=== PATIENT | female | born 1945 | race Caucasian/White ===

== ENCOUNTER → 2016-08-11 | Outpatient (CLI) | payer MEDICARE, MEDICAID | END | disposition home or self-care (01) | LOC: GMAH 11:23 | PROVIDERS: ATTEND Family Medicine | DX: N18.4 Chronic kidney disease, stage 4 (severe) (principal) ==

== ENCOUNTER → 2016-11-17 | Outpatient (CLI) | payer MEDICARE, MEDICAID | END | disposition home or self-care (01) | LOC: GMAH 11:53 | PROVIDERS: ATTEND Family Medicine | DX: N18.3 Chronic kidney disease, stage 3 (moderate) (principal) ==

== ENCOUNTER → 2017-03-15 | Outpatient (CLI) | payer OTHER | END | disposition home or self-care (01) | LOC: GMAH 10:20 | PROVIDERS: ATTEND Family Medicine | DX: E78.2 Mixed hyperlipidemia (principal); I10 Essential (primary) hypertension ==

== ENCOUNTER → 2017-04-04 | Outpatient (CLI) | payer OTHER | END | disposition home or self-care (01) | LOC: GMAH 10:18 | PROVIDERS: ATTEND Family Medicine | DX: M10.9 Gout, unspecified (principal) ==

== ENCOUNTER → 2017-05-02 | Outpatient (CLI) | payer OTHER | END | disposition home or self-care (01) | LOC: GMAH 11:20 | PROVIDERS: ATTEND Family Medicine | DX: E03.9 Hypothyroidism, unspecified (principal) ==

== ENCOUNTER → 2017-09-15 | Outpatient (CLI) | payer OTHER, MEDICAID | LOC: GMAH 10:09 | PROVIDERS: ATTEND Family Medicine | DX: N18.4 Chronic kidney disease, stage 4 (severe) (principal) ==

== ENCOUNTER → 2018-02-07 | Outpatient (CLI) | payer OTHER, MEDICAID | LOC: GMAH 11:08 | PROVIDERS: ATTEND Family Medicine | DX: E53.8 Deficiency of other specified B group vitamins (principal); R53.83 Other fatigue ==

== ENCOUNTER → 2018-03-22 | Outpatient (CLI) | payer OTHER, MEDICAID | LOC: GMAH 10:48 | PROVIDERS: ATTEND Family Medicine | DX: R30.0 Dysuria (principal) ==

== ENCOUNTER → 2018-04-04 | Outpatient (CLI) | payer OTHER, MEDICAID | LOC: GMAH 11:53 | PROVIDERS: ATTEND Family Medicine | DX: I48.91 Unspecified atrial fibrillation (principal) ==

== ENCOUNTER → 2018-06-26 | Outpatient (CLI) | payer OTHER, MEDICAID | LOC: GMAH 10:47 | PROVIDERS: ATTEND Family Medicine | DX: I10 Essential (primary) hypertension (principal) ==

== ENCOUNTER 2019-04-12 13:06 | Emergency (ER) | payer MEDICARE, MEDICAID ==
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
[2019-04-12] MEDS ORDERED: KETOROLAC TROMETHAMINE INJ 60 MG/2 ML VIAL IM ONE (13:21)
--- NOTE | 2019-04-12 14:15 | RAD ---
EXAM DESCRIPTION: Ribs,Left 3 Views CLINICAL HISTORY: 73 years Female, fall COMPARISON: None. FINDINGS: 4 views of the left ribs shows mildly displaced anterior lateral left fifth and sixth rib fractures. Lungs are mildly hypoaerated. No pneumothorax or obvious pleural effusion. Moderate disc degenerative changes of the thoracic spine are seen. IMPRESSION: Mildly displaced left fifth and sixth rib fractures are seen. Electronically signed by: Olman Cottrell MD 04/12/2019 2:14 PM [employer]ER
[2019-04-12 15:30] VITALS: BP 129/66; TEMP 97.7; O2SAT 97
== END 2019-04-12 15:29 | disposition home or self-care (01) ==
LOC: ER 13:06
DX: S22.42XA Multiple fractures of ribs, left side, initial encounter for closed fracture (principal); J44.9 Chronic obstructive pulmonary disease, unspecified; I48.91 Unspecified atrial fibrillation; I50.9 Heart failure, unspecified; I11.0 Hypertensive heart disease with heart failure; E07.9 Disorder of thyroid, unspecified; K21.9 Gastro-esophageal reflux disease without esophagitis; Z85.3 Personal history of malignant neoplasm of breast; Z85.42 Personal history of malignant neoplasm of other parts of uterus; Z79.84 Long term (current) use of oral hypoglycemic drugs; Z79.899 Other long term (current) drug therapy; Z88.1 Allergy status to other antibiotic agents; Z88.0 Allergy status to penicillin; Z87.891 Personal history of nicotine dependence; W18.30XA Fall on same level, unspecified, initial encounter; Y93.01 Activity, walking, marching and hiking; Y92.89 Other specified places as the place of occurrence of the external cause
CPT/HCPCS: 71101; J1885

== ENCOUNTER → 2019-06-28 | Outpatient (CLI) | payer MEDICARE, MEDICAID | LOC: GMA MATASK 12:43 | PROVIDERS: ATTEND Family Medicine | DX: E03.9 Hypothyroidism, unspecified (principal); I10 Essential (primary) hypertension; E11.9 Type 2 diabetes mellitus without complications ==

== ENCOUNTER → 2019-08-20 | Outpatient (CLI) | payer MEDICARE, MEDICAID | DX: M16.0 Bilateral primary osteoarthritis of hip (principal); M25.561 Pain in right knee; M85.861 Other specified disorders of bone density and structure, right lower leg; Z96.651 Presence of right artificial knee joint ==

== ENCOUNTER 2019-08-21 05:45 | Inpatient (IN) | payer MEDICARE, MEDICAID ==
--- NOTE | 2019-08-20 16:25 | RAD ---
EXAM DESCRIPTION: Chest,2 Views CLINICAL HISTORY: pre op COMPARISON: April 12, 2019 TECHNIQUE: PA/lateral FINDINGS: Mild cardiomegaly is present with normal vascularity. No pleural effusions or Central vascular congestion or pulmonary edema noted. Peripheral lung angelo are clear. No consolidation or pleural effusions noted. No acute infiltrates. IMPRESSION: No acute cardiopulmonary disease. Cardiomegaly without congestive failure. Electronically signed by: Frank Stokes MD 08/20/2019 4:23 PM CDT
[2019-08-21] MEDS ORDERED: LACTATED RINGERS 1,000 ML ONE (06:24)
[2019-08-21] MEDS ORDERED: VANCOMYCIN HCL INJ 1,000 MG VIAL IVPB ONE ×6 (06:25→19:58)
[2019-08-21] MEDS ORDERED: ceFAZolin SODIUM 1 GM VIAL ONE (06:25)
[2019-08-21] MEDS ORDERED: SODIUM CHL 0.9% 100ML MINI-BAG 100 ML IVPB ONE (06:27)
[2019-08-21] MEDS ORDERED: SODIUM CHLORIDE 0.9% 250ML 250 ML ONE ×3 (06:28→19:57)
[2019-08-21] MEDS ORDERED: TRANEXAMIC ACID 1,000 MG/10 ML VIAL ONE (06:30)
[2019-08-21] MEDS ORDERED: BUPIVACAINE 0.5% 30 ML VIAL INJ ONE ×2 (07:32→07:44)
[2019-08-21] MEDS ORDERED: BUPIVACAINE LIPOSOME 13.3 MG/ML VIAL INJ ONE ×2 (07:32→07:44)
[2019-08-21] MEDS ORDERED: KETAMINE HCL 100 MG/ML VIAL ONE (07:38)
[2019-08-21] MEDS ORDERED: MIDAZOLAM INJ 5 MG/5 ML VIAL ONE (07:39)
[2019-08-21] MEDS ORDERED: fentaNYL CITRATE INJ 50 MCG/ML 2 ML AMP ONE (07:39)
[2019-08-21] MEDS ORDERED: ACETAMINOPHEN IV 1000MG 100 ML ONE (07:39)
[2019-08-21] MEDS ORDERED: HYDROmorphone HCL INJ 2 MG/ML VIAL ONE (08:54)
[2019-08-21] MEDS ORDERED: ELECTROLYTE-A 1,000 ML IVS ONE (09:12)
[2019-08-21] MEDS ORDERED: raNITIdine HCL INJ 25 MG/ML VIAL IV ONE (10:00)
[2019-08-21] MEDS ORDERED: MAGNESIUM SULFATE INJ 1 GM/2 ML VIAL IVPB ONE (10:00)
[2019-08-21] MEDS ORDERED: SODIUM CHLORIDE 0.9% 50 ML VIAL INJ ONE (10:00)
[2019-08-21] MEDS ORDERED: DEXAMETHASONE INJ 10 MG/ML VIAL IV ONE (10:00)
[2019-08-21] MEDS ORDERED: PROPOFOL 200 MG/20 ML VIAL IV ONE (10:00)
[2019-08-21] MEDS ORDERED: KETOROLAC TROMETHAMINE INJ 30 MG/ML VIAL IV ONE (10:00)
[2019-08-21] MEDS ORDERED: METOCLOPRAMIDE HCL INJ 10 MG/2 ML VIAL IV ONE (10:00)
[2019-08-21] MEDS ORDERED: ePHEDrine SULF 50 MG/ML IV ONE (10:00)
[2019-08-21] MEDS ORDERED: TRANEXAMIC ACID INJ 1,000 MG in SODIUM CHLORIDE 0.9% 100ML 100 ML IVPB ONE (10:36)
[2019-08-21] MEDS ORDERED: PROMETHAZINE HCL INJ 12.5 MG in SODIUM CHLORIDE 0.9% 50ML 50 ML IVPB PRN (10:36)
[2019-08-21] MEDS ORDERED: MORPHINE SULFATE INJ 10 MG/ML VIAL IV PRN (10:36)
[2019-08-21] MEDS ORDERED: MAGNESIUM HYDROXIDE 30 ML UD PO PRN (10:36)
[2019-08-21] MEDS ORDERED: PROMETHAZINE HCL INJ 25 MG in SODIUM CHLORIDE 0.9% 50ML 50 ML IVPB PRN (10:36)
[2019-08-21] MEDS ORDERED: DEX 5% W/NACL 0.45% 1000ML 1,000 ML IVS PRN (10:36)
[2019-08-21] MEDS ORDERED: MORPHINE SULFATE INJ 10 MG/ML VIAL IM PRN (10:36)
[2019-08-21] MEDS ORDERED: ZOLPIDEM TARTRATE 5 MG TAB PO PRN (10:36)
[2019-08-21] MEDS ORDERED: ALUMINUM & MAGNESIUM HYDROXIDE 30 ML UD PO PRN (10:36)
[2019-08-21] MEDS ORDERED: TEMAZEPAM 15 MG CAP PO PRN (10:36)
[2019-08-21] MEDS ORDERED: BISACODYL SUPPOSITORY 10 MG PR PRN (10:36)
[2019-08-21] MEDS ORDERED: ONDANSETRON INJ 4 MG/2 ML VIAL IV PRN (10:36)
[2019-08-21] MEDS ORDERED: SODIUM CHLORIDE 0.9% (FLUSH) 10 ML SYG IV PRN (10:36)
[2019-08-21] MEDS ORDERED: NALOXONE HCL INJ 0.4 MG/ML VIAL IV PRN (10:36)
[2019-08-21] MEDS ORDERED: ACETAMINOPHEN 500 MG TAB PO PRN (10:36)
[2019-08-21] MEDS ORDERED: BENZOCAINE-MENTH LOZ (CEPACOL) 1 EA LOZ MT PRN (10:36)
[2019-08-21] MEDS ORDERED: ACETAMINOPHEN 325 MG TAB PO PRN (10:36)
[2019-08-21] MEDS ORDERED: MORPHINE PCA 1 MG/ML 100 ML BAG IVPB SCH (11:00)
[2019-08-21] MEDS ORDERED: levoFLOXacin 500MG IV 500 MG in PREMIX BAG 1 BAG IVPB SCH (14:30)
[2019-08-21] MEDS ORDERED: VANCOMYCIN PER PHARMACY INJ SCH (14:30)
[2019-08-21] MEDS ORDERED: levoFLOXacin 500MG IV 100 ML IVPB ONE (15:29)
[2019-08-21] MEDS: IV SET AND CAP CHANGE INJ INJ SCH (15:33)
--- NOTE | 2019-08-21 16:09 | RAD ---
EXAM DESCRIPTION: Knee,Right 1 or 2 Views CLINICAL HISTORY: 74 years Female, TKA COMPARISON: August 09, 2019 Findings: Location: Right knee Recent revised right total knee arthroplasty. The tibial component is slightly posteriorly subluxed which may be its intended appearance. No hardware fracture identified Osteopenia. No acute fracture or dislocation. Expected postsurgical appearance of the overlying soft tissues. IMPRESSION: Recent revised right total knee arthroplasty with hardware placement as above. Electronically signed by: Trace Ordoñez MD 08/21/2019 4:07 PM CDT
[2019-08-21] MEDS: VANCOMYCIN HCL INJ 1,000 MG in SODIUM CHLORIDE 0.9% 250ML 250 ML IVPB SCH (17:21)
[2019-08-21] MEDS: CELECOXIB 100 MG CAP PO SCH (17:21)
[2019-08-21] MEDS ORDERED: DEXTROSE 50% 25 GM/50 ML SYG IV PRN (19:53)
[2019-08-21] MEDS ORDERED: GLUCAGON INJ 1 MG VIAL SUBCU PRN (19:53)
[2019-08-21] MEDS ORDERED: ACETAMINOPHEN W/COD #3 TAB 1 EA TAB ONE (19:55)
[2019-08-21] MEDS ORDERED: ENOXAPARIN SODIUM 30 MG/0.3 ML SYG SUBCU ONE (19:57)
[2019-08-21] MEDS: metFORMIN HCL 500 MG TAB PO SCH (21:00)
[2019-08-21] MEDS: traZODone HCL 50 MG TAB PO SCH (21:00)
[2019-08-21] MEDS: SUCRALFATE 1 GM TAB PO SCH (21:00)
[2019-08-21] MEDS: METOPROLOL TARTRATE 25 MG TAB PO SCH (21:00)
[2019-08-21] MEDS: ACETAMINOPHEN W/COD #3 TAB 1 EA TAB PO SCH (21:00)
[2019-08-21] MEDS: DOCUSATE CALCIUM 240 MG CAP PO SCH (21:00)
[2019-08-21] MEDS ORDERED: ACETAMINOPHEN W/COD #3 TAB (ER Disp) PO SCH (21:00)
[2019-08-21] MEDS ORDERED: ENOXAPARIN SODIUM 30 MG/0.3 ML SYG SUBCU SCH (23:00)
[2019-08-22] MEDS: INSULIN LISPRO 100 UNITS/ML PEN SUBCU SCH ×5 (04:19→21:31)
[2019-08-22] MEDS: traMADol 37.5MG/APAP 325MG 1 EA TAB PO SCH ×3 (04:22→20:45)
[2019-08-22] MEDS: VANCOMYCIN HCL INJ 1,000 MG in SODIUM CHLORIDE 0.9% 250ML 250 ML IVPB SCH (05:52)
[2019-08-22] MEDS: CELECOXIB 100 MG CAP PO SCH ×2 (08:44→18:08)
--- NOTE | 2019-08-22 08:57 | CONS ---
SUPERVISING PHYSICIAN: BILLY BARTLETT MD CHIEF COMPLAINT: Right knee pain status post hardware removal due to septic joint. HISTORY OF PRESENT ILLNESS: Ms. Clark is a 74 year-old patient who has a history of knee replacement previously on the right. She started having some pain in the knee and was seen in the Emergency Room the first part of the month and was referred to Dr. Hill. After being seen by Dr. Hill, it was recommended that there was a possibility of an infection in that knee and she was admitted today for a right knee hardware removal with aspiration and irrigation of the joint with an antibiotic spacer placement and then admission to the medical/surgical floor for ongoing antibiotic therapy. PAST MEDICAL HISTORY: 1. Hypertension. 2. Atrial fibrillation. 3. Diabetes mellitus type 2. 4. History of breast cancer diagnosed in 2009. 5. Cataracts. PAST SURGICAL HISTORY: 1. Hysterectomy in 1965. 2. Gastric bypass in 2005. 3. Knee replacement in 2002 and 2003. 4. Bilateral mastectomy in 2009. CURRENT MEDICATIONS: 1. Tramadol 37.5/325, one b.i.d. 2. Trazodone 50 mg at bedtime. 3. Carafate 1 gram b.i.d. 4. Xarelto 20 mg daily. 5. Metoprolol 50 mg b.i.d. 6. Metformin 1000 mg at bedtime. 7. Lovastatin 20 mg daily. 8. Levothyroxine 50 mcg daily. 9. Diltiazem 180 mg daily. 10. Digoxin 0.125 mg daily. 11. Citalopram 20 mg daily. 12. Allopurinol 300 mg daily. 13. Tylenol #3, one every 6 hours has needed for pain. ALLERGIES: CEPHALEXIN, PENICILLIN FAMILY HISTORY: Noncontributory other than her father at age 46 due to from tuberculosis. Mother at age 56 secondary to alcohol poison. She has 4 brothers with having history of lung cancer. She has one son. SOCIAL HISTORY: The patient is retired. She is , lives in [place], [place]. She is a former smoker, she does not drink or use illicit drugs. REVIEW OF SYSTEMS: CONSTITUTIONAL: Denies fever, general malaise, chills. HEENT: Denies headaches, vision changes, sore throat, nasal congestion. RESPIRATORY: Denies any cough or shortness of breath, wheezing. CARDIOVASCULAR: Denies any chest pains or palpitations, syncopal episodes. GASTROINTESTINAL: Denies nausea, vomiting, diarrhea, abdominal pains. GENITOURINARY: Denies dysuria, hematuria or polyuria. MUSCULOSKELETAL: As noted in history of present illness. NEUROLOGIC: Denies any ataxia, seizures, syncopal episodes, vision changes, migraines or other neurological focal deficits. HEMATOLOGICAL: Denies easy bruising or unexplained bleeding, transfusion reaction/ PHYSICAL EXAMINATION: VITAL SIGNS: Temperature 98.1, pulse 69, blood pressure 134/77, respirations 16, oxygen saturation 94% on room air. GENERAL: The patient is seen in postoperative state. She is resting comfortably but does not appear to be in any acute distress. She is alert. HEENT: Tympanic membranes are clear bilaterally. Oropharynx is pink and moist without any lesions. NECK: Supple, non-tender, full range of motion. No jugular venous distention. CHEST: Lung sounds are clear to auscultation bilaterally without any rhonchi, rales or wheezing. CARDIOVASCULAR: Regular rate and rhythm without appreciable murmurs, gallops, or rubs. ABDOMEN: Soft, non-tender, positive bowel sounds. EXTREMITIES: Right knee has an Renny bandage wrapped in place with a knee immobilizer. Pulses distally with strong capillary refill, brisk. NEUROLOGIC: She is alert and oriented times three. Cranial nerves II-XII are grossly intact. Facial features are symmetrical. Extraocular movements are within normal limits. There is no notable nystagmus. LABORATORY: Preoperative lab on the 08/19 showed hemoglobin of 12.1 and hematocrit of 37.1 with white count of 9,500. ESR 46. Chemistries: sodium 134, C-reactive protein 14.4, creatinine 0.95, glucose 151, calcium 9.7. Urinalysis yesterday showed positive nitrites with moderate leukoesterase, 20 to 30 WBCs, 0 epithelials, 2+ bacteria, trace amount of mucus. Urine drug screen was negative. Antistreptolysin screen was 48.7, within normal limits. RADIOLOGY: Please see preoperative workup for knee x-rays. Chest x-ray preparatively per radiology interpretation showed no acute cardiopulmonary disease, cardiomegaly without any Judy Cunningham MD. ASSESSMENT: 1. Septic right knee with hardware secondary to gram positive cocci requiring hardware removal with antibiotic spacer placement with no signs of sepsis. 2. Chronic atrial fibrillation with a controlled rate, on Digoxin, Cardizem and Xarelto. 3. Urinary tract infection likely gram negative with positive nitrites,cultures pending, with the knee replacement with the gram positive cocci. 4. Hypertension. 5. Type 2 diabetes mellitus on oral therapy. 6. History of breast cancer, bilateral mastectomy in 2009. PLAN: Ms. Clark was admitted for hardware from the right knee and antibiotic spacer by Dr. Hill. Cultures were sent with showing initial gram positive cocci. I did discuss with Dr. Hill and Dr. Dr. Cardenas, she will need 6 weeks of parenteral antibiotics with vancomycin empirically at this point and Levaquin to cover for urinary tract infection, awaiting culture results to further target antibiotic therapy as appropriate. She does have allergies to cephalexin and penicillin. We will get a PICC line placed in the morning. She will need the 6 weeks total antibiotic therapy with 2 weeks off with re-aspiration of the joint and at that point, possibly replacement of the knee. She will have a knee immobilizer in place, be nonweightbearing as per Dr. Hill's orders. She will need a social consultation and discussion on plan of care as far as continued antibiotic therapy either at home or to long-term care. We will continue to monitor her atrial fibrillation and lab as necessary and continue to touch base with Dr. Cardenas and she will need to followup with Dr. Cardenas at some point when discharged. She will be on sliding scale per protocol. She was already on Xarelto for DVT prophylaxis. We will resume her home medications once those have been updated and verified. I would anticipate her length of stay from the acute side to be at least 3 to 5 days, depending on the length of culture return and need for antibiotic therapy changes and placement and ultimately disposition on discharge planning. Until we can transition her to outpatient management, we will continue to monitor and treat as needed [id number]
[2019-08-22] MEDS ORDERED: DILTIAZEM HCL 180 MG PO SCH (09:00)
[2019-08-22] MEDS ORDERED: NON-FORMULARY MEDICATION 1 EA MIS (Levothyroxine Sodium [Levothyroxine Sodium] 50 MCG) PO SCH (09:00)
[2019-08-22] MEDS ORDERED: NON-FORMULARY MEDICATION 1 EA MIS (Lovastatin [Lovastatin] 20 MG) PO SCH (09:00)
[2019-08-22] MEDS ORDERED: NON-FORMULARY MEDICATION 1 EA MIS (Rivaroxaban [Xarelto] 20 MG) PO SCH (09:00)
[2019-08-22] MEDS: METOPROLOL TARTRATE 25 MG TAB PO SCH ×2 (10:24→20:46)
[2019-08-22] MEDS: ACETAMINOPHEN W/COD #3 TAB 1 EA TAB PO SCH ×2 (10:24→20:46)
[2019-08-22] MEDS: MAGNESIUM OXIDE 400 MG TAB PO SCH (10:24)
[2019-08-22] MEDS: ALLOPURINOL 300 MG TAB PO SCH (10:24)
[2019-08-22] MEDS: CYCLOBENZAPRINE HCL 10 MG TAB PO PRN (10:24)
[2019-08-22] MEDS: LEVOTHYROXINE SODIUM 0.025 MG TAB PO SCH (10:25)
[2019-08-22] MEDS: diltiaZEM HCL CD 180 MG CAP PO SCH (10:25)
[2019-08-22] MEDS: RIVAROXABAN 10 MG TAB PO SCH (10:25)
[2019-08-22] MEDS: CITALOPRAM HBR 20 MG TAB PO SCH (10:25)
[2019-08-22] MEDS: DIGOXIN 0.125 MG TAB PO SCH (11:43)
[2019-08-22] MEDS: SUCRALFATE 1 GM TAB PO SCH ×2 (11:43→20:46)
--- NOTE | 2019-08-22 11:53 | RAD ---
EXAM DESCRIPTION: Chest,1 View CLINICAL HISTORY: picc line placement . COMPARISON: August 20, 2019 IMPRESSION: Single AP portable upright view of the chest shows mild enlargement of the cardiac silhouette without pulmonary vascular congestion. Lungs are normally aerated without acute appearing infiltrate or consolidation. Interval placement of a left-sided PICC line is seen with tip in the expected location of the midsuperior vena cava. Electronically signed by: Olman Cottrell MD 08/22/2019 11:51 AM CDT
[2019-08-22] MEDS ORDERED: levoFLOXacin 250MG IV 50 ML IVPB ONE (14:21)
[2019-08-22] MEDS: levoFLOXacin 250MG IV 250 MG in PREMIX BAG 1 BAG IVPB SCH (14:24)
[2019-08-22] MEDS ORDERED: SODIUM CHLORIDE 0.9% 250ML 250 ML ONE (19:19)
[2019-08-22] MEDS ORDERED: VANCOMYCIN HCL INJ 1,000 MG VIAL IVPB ONE (19:19)
--- NOTE | 2019-08-22 19:27 | PN ---
SUPERVISING PHYSICIAN: : Leroy Wilkinson MD DATE: 08/22/19 SUBJECTIVE: The patient is doing well. She has had good pain control. She has had no nausea or vomiting postoperatively. We did discuss her discharge planning which is go to [facility] once her insurance has been accepted. Again, she will be on antibiotics for 6 weeks with continued followup with Dr. Hill and Dr. Cardenas. We are still waiting on final culture results. OBJECTIVE: VITAL SIGNS: She remains afebrile. Temperature 97.7, pulse 70, blood pressure 124/70, respirations 16, oxygen saturation 99% on 1.5 liter nasal cannula. GENERAL: The patient is resting comfortably, appears to be in no acute distress. CHEST: Clear to auscultation. HEART: Regular rate and rhythm. ABDOMEN: Soft, non-tender, positive bowel sound. EXTREMITIES: Right knee continues to be in a brace with dressing in place. Distal pulses are strong, capillary refill is brisk. NEUROLOGIC: She alert and oriented x 3. LABORATORY: Postoperative hemoglobin 9.6, hematocrit 30.3, repeat chemistries today showed sodium 132, BUN 21, creatinine 1.20. Blood sugars remained stable between 116 and 153. Calcium 8.0 MICROBIOLOGY: Urine culture still pending. Wound culture still pending. Her MRSA surveillance culture was negative for MRSA. RADIOLOGY: Chest x-ray this afternoon after PICC line placement showed interval placement of left-sided PICC line seen with the tip in expected location of the mid superior vena cava, otherwise lungs were normally aerated with no acute appearing infiltrate or consolidation. ASSESSMENT: 1. Septic right knee with hardware in place secondary to gram positive cocci requiring hardware removal and antibiotic spacer placement with no signs of sepsis. Patient postoperative day #1. 2. Chronic atrial fibrillation with a controlled rate, on Digoxin, Cardizem and Xarelto. 3. Urinary tract infection likely gram positive cocci, awaiting culture results with patient on Levaquin. 4. Hypertension, stable. 5. Type 2 diabetes mellitus on oral therapy. 6. History of breast cancer, bilateral mastectomy in 2009. PLAN: We will await culture results and final acceptance to [facility] She remains on antibiotic coverage with vancomycin per pharmacy protocol and Levaquin which has been dosed for renal function. Again, discussed the case with Dr. Cardenas for 6 weeks recommending course antibiotics based off culture results. Until the, we will continue to monitor vancomycin and Levaquin. Once she has her 6-week target, she will need an aspiration, reculture and then at that point they can replace the knee which will all be done through Dr. Hill and Dr. Cardenas's office in followup. I anticipate hopefully she w8ll be able to go to [facility] within the next 24 to 48 hours. We are still awaiting final culture results to target antibiotic therapy. She remains on DVT prophylaxis with Xarelto. Her atrial fibrillation is in control. She has a stable dig level. No other complications are noted and she is actually really well. Until the, we will continue to monitor and treat as needed.. [facility][id number]
[2019-08-22] MEDS: DOCUSATE CALCIUM 240 MG CAP PO SCH (20:45)
[2019-08-22] MEDS: traZODone HCL 50 MG TAB PO SCH (20:46)
[2019-08-22] MEDS: SIMVASTATIN 10 MG TAB PO SCH (20:46)
[2019-08-22] MEDS: metFORMIN HCL 500 MG TAB PO SCH (20:46)
[2019-08-23] MEDS: HYDROcodone 5MG/APAP 325MG 1 EA TAB PO PRN ×4 (00:36→19:49)
[2019-08-23] MEDS: VANCOMYCIN HCL INJ 1,000 MG in SODIUM CHLORIDE 0.9% 250ML 250 ML IVPB SCH (05:55)
[2019-08-23] MEDS: CELECOXIB 100 MG CAP PO SCH ×2 (07:48→17:00)
[2019-08-23] MEDS: CYCLOBENZAPRINE HCL 10 MG TAB PO PRN (07:48)
[2019-08-23] MEDS: INSULIN LISPRO 100 UNITS/ML PEN SUBCU SCH ×4 (07:54→20:20)
--- NOTE | 2019-08-23 09:16 | PN ---
DATE: 08/22/19 SUBJECTIVE: Ms. Clark is doing well and feels better than before surgery. OBJECTIVE: Afebrile. Vital signs stable. Dressing is clean, dry and intact. ASSESSMENT: Status post explantation of prosthesis. PLAN: The plan at this point is for placement of PICC line and 6 weeks of IV antibiotics. Dr. Cardenas has given direction on that and we will await cultures. #[id number] [facility]
--- NOTE | 2019-08-23 09:21 | PN ---
DATE: 08/23/19 SUBJECTIVE: Ms. Clark is doing pretty well and pain is well controlled. OBJECTIVE: Afebrile. Vital signs stable. Wound is clean. There are no signs or symptoms of infection. ASSESSMENT: Status post I&D with removal of prosthesis. PLAN: The plan is to continue with her IV antibiotics. We will discharge her once a plan is made for further IV therapy. #[id number] [facility]
--- NOTE | 2019-08-23 09:34 | OP ---
DATE OF PROCEDURE: 08/21/19 PREOPERATIVE DIAGNOSIS: 1. Infected right knee prosthesis. POSTOPERATIVE DIAGNOSIS: 1. Infected right knee prosthesis. PROCEDURE: 1. Removal of implant and placement of antibiotic spacer. 2. I&D. SURGEON: Zeb Hill MD. HUMAN RESOURCES COMPENSATION ANALYST: Phoenix Cuello CST, SA-C. ANESTHESIA: General anesthesia. COMPLICATIONS: None. FINDINGS: 1. Gross purulence. 2. Large amount of hypertrophic synovitis. 3. Purulence within the femoral canal and softening of the tibial plateau. INDICATION: Ms. Clark has a history of total knee arthroplasty that was done in 2002 or 2004. Unfortunately, the patient was unable to give an exact recollection. She was doing pretty well, but about two weeks prior to surgery started having some knee pain. It started to get progressively worse and she got progressively more swelling in the knee. She presented to the Emergency Room and evaluation was done, but no intervention was performed. After presentation, she was discharged and sent to me for followup. After examination, I determined that she likely had an infection and we talked about the risks, benefits and alternatives to operative therapy. Labs indicated that there was a high likelihood of infection. She could not tolerate aspiration of the knee in clinic and therefore I was unable to get fluid at that time. Prior to her being prepped for surgery, I did sterilely aspirate some fluid while she was sedated. That fluid showed too numerous number of white cells to count. Additionally, there was evidence of gram positive cocci. Based on that, we had talked about doing an explantation and she had given her permission to proceed with that. PROCEDURE: The patient was brought to the Operating Room and placed in supine position. General anesthesia was induced and the patient's leg was sterilely prepped and draped. The patient has had multiple incisions on the knee, so I chose the one most centrally located and made an incision on the anterior aspect. Dissection was carried down and a standard medial parapatellar approach was used. Upon opening the joint, a very large amount of brown fluid was expressed. Cultures were taken at that point. Complete synovectomy was performed and cultures were taken of that. That was sent to pathology. Following that, the polyethylene was removed and a series of saw blades and osteotomes were used to remove the tibial baseplate. As much cement that could be removed was removed and minimal bone was actually removed from the tibial plateau. That said, there were some areas of purulence consistent with osteomyelitis of the tibial plateau. That was very thoroughly debrided. After debridement, attention was focused on the femoral component. Again, a series of osteotomes and saw blades were used and the femoral component was removed. Upon removal, there appeared to be some gross purulence within the canal. After that, the wound was very thoroughly irrigated with 9 liters of antibiotic solution. The knee was examined again to ensure complete removal of all cement as well as synovium. The bone surfaces were then prepared for placement of an [employer] antibiotic laden prosthesis. After placement of that, the knee was closed with reapproximation of the arthrotomy. The wound was closed with a combination of interrupted and subcuticular stitches. Sterile dressings were placed. The patient was placed in a knee immobilizer, awoken from anesthesia and taken to Recovery. POSTOPERATIVE PLAN: She is going to be only toe-touch weightbearing. We have talked about her postoperative course, which will likely be placement of a PICC line followed by 6 weeks of IV antibiotics, evaluation to ensure complete resolution of infection and subsequent replantation. She will be admitted today to begin therapy. #[id number] [facility]
[2019-08-23] MEDS: ALLOPURINOL 300 MG TAB PO SCH (10:07)
[2019-08-23] MEDS: CITALOPRAM HBR 20 MG TAB PO SCH (10:07)
[2019-08-23] MEDS: METOPROLOL TARTRATE 25 MG TAB PO SCH ×2 (10:07→20:21)
[2019-08-23] MEDS: LEVOTHYROXINE SODIUM 0.025 MG TAB PO SCH (10:07)
[2019-08-23] MEDS: DIGOXIN 0.125 MG TAB PO SCH (10:07)
[2019-08-23] MEDS: RIVAROXABAN 10 MG TAB PO SCH (10:07)
[2019-08-23] MEDS: SODIUM CHLORIDE 0.9% (FLUSH) 10 ML SYG IV SCH ×2 (10:07→20:22)
[2019-08-23] MEDS: MAGNESIUM OXIDE 400 MG TAB PO SCH (10:07)
[2019-08-23] MEDS: diltiaZEM HCL CD 180 MG CAP PO SCH (10:07)
[2019-08-23] MEDS: SUCRALFATE 1 GM TAB PO SCH ×2 (10:07→20:20)
[2019-08-23] MEDS: ACETAMINOPHEN W/COD #3 TAB 1 EA TAB PO SCH ×2 (10:08→20:21)
[2019-08-23] MEDS: traMADol 37.5MG/APAP 325MG 1 EA TAB PO SCH ×2 (10:08→20:20)
[2019-08-23] MEDS ORDERED: levoFLOXacin 250MG IV 50 ML IVPB ONE (15:56)
[2019-08-23] MEDS: levoFLOXacin 250MG IV 250 MG in PREMIX BAG 1 BAG IVPB SCH (15:57)
--- NOTE | 2019-08-23 19:11 | PN ---
SUPERVISING PHYSICIAN: Nitesh Wilkinson MD DATE: 08/23/19 SUBJECTIVE: The patient is doing well today. Her bulky bandage came off which did result in some relief in some discomfort to the leg. She has had good pain control. She did have her final culture results come back from urine that showed E. coli which is pansensitive and discussed this with the patient in regards to continuation of antibiotics and plan of care. She has not had any further complaints. She understands she will be on antibiotics for at least 6 weeks minimum. OBJECTIVE: VITAL SIGNS: She remains afebrile. Temperature 96.5, pulse 61, blood pressure 104/71, respirations 14 to16, oxygen saturation 98% on room air. I&Os show negative balance of 390. Weight 78.4 kg. GENERAL: The patient is resting comfortably. She just finished lunch. She is in no acute distress. CHEST: Clear to auscultation. HEART: Regular rate and rhythm. ABDOMEN: Soft, nontender, positive bowel sounds. EXTREMITIES: Right knee continues to be in immobilizer with now island dressing. Distal pulses are strong, capillary refill is brisk. NEUROLOGIC: She alert and oriented x 3. LABORATORY: No additional laboratory studies. Blood sugar have run between 95 and 154. MICROBIOLOGY: Urine culture final results showed E. coli which as pansensitive. ASSESSMENT: 1. Septic right knee with hardware in place secondary to gram positive cocci requiring hardware removal and antibiotic spacer placement with no signs of sepsis. Postoperative day #2. 2. Chronic atrial fibrillation with a controlled rate, on Digoxin, Cardizem and Xarelto. 3. Urinary tract infection secondary to Escherichia coli that was pansensitive on cultures with the patient on Levaquin. 4. Hypertension, stable. 5. Type 2 diabetes mellitus on oral therapy. 6. History of breast cancer, bilateral mastectomy in 2009. PLAN: We will continue to await acceptance to [facility]. She remains on vancomycin per pharmacy protocol and Levaquin. Again per discussion with Dr. Cardenas and Dr. Hill, 6 weeks of antibiotics and further followup with Dr. Cardenas for continued efforts to ultimately replace the knee. Until we get cultures back and can transition to outpatient management for further treatment of antibiotic coverage, we will continue to monitor and treat as needed. [facility][id number] [facility]
[2019-08-23] MEDS ORDERED: VANCOMYCIN HCL INJ 1,000 MG VIAL IVPB ONE (19:45)
[2019-08-23] MEDS ORDERED: SODIUM CHLORIDE 0.9% 250ML 250 ML ONE (19:45)
[2019-08-23] MEDS: DOCUSATE CALCIUM 240 MG CAP PO SCH (20:20)
[2019-08-23] MEDS: traZODone HCL 50 MG TAB PO SCH (20:20)
[2019-08-23] MEDS: metFORMIN HCL 500 MG TAB PO SCH (20:20)
[2019-08-23] MEDS: SIMVASTATIN 10 MG TAB PO SCH (20:22)
[2019-08-24] MEDS: HYDROcodone 5MG/APAP 325MG 1 EA TAB PO PRN ×3 (02:17→13:09)
[2019-08-24] MEDS: VANCOMYCIN HCL INJ 1,000 MG in SODIUM CHLORIDE 0.9% 250ML 250 ML IVPB SCH (06:00)
[2019-08-24] MEDS: CYCLOBENZAPRINE HCL 10 MG TAB PO PRN ×2 (06:46→13:09)
[2019-08-24] MEDS: INSULIN LISPRO 100 UNITS/ML PEN SUBCU SCH ×4 (07:58→21:19)
[2019-08-24] MEDS: CELECOXIB 100 MG CAP PO SCH ×2 (08:23→16:45)
[2019-08-24] MEDS ORDERED: VANCOMYCIN HCL INJ 1,000 MG VIAL IVPB ONE (09:40)
[2019-08-24] MEDS ORDERED: SODIUM CHLORIDE 0.9% 250ML 250 ML ONE (09:40)
[2019-08-24] MEDS: POLYETHYLENE GLYCOL 3350 17 GM PCKT PO SCH (09:46)
[2019-08-24] MEDS: VANCOMYCIN HCL INJ 750 MG in SODIUM CHLORIDE 0.9% 250ML 250 ML IVPB SCH (09:46)
[2019-08-24] MEDS: BIFIDOBACTERIUM INFANTIS 4 MG CAP PO SCH (09:49)
[2019-08-24] MEDS: LEVOTHYROXINE SODIUM 0.025 MG TAB PO SCH (09:49)
[2019-08-24] MEDS: ACETAMINOPHEN W/COD #3 TAB 1 EA TAB PO SCH ×2 (09:49→21:15)
[2019-08-24] MEDS: METOPROLOL TARTRATE 25 MG TAB PO SCH ×2 (09:49→21:15)
[2019-08-24] MEDS: DIGOXIN 0.125 MG TAB PO SCH (09:50)
[2019-08-24] MEDS: traMADol 37.5MG/APAP 325MG 1 EA TAB PO SCH ×2 (09:50→21:14)
[2019-08-24] MEDS: SODIUM CHLORIDE 0.9% (FLUSH) 10 ML SYG IV SCH ×2 (09:50→21:24)
[2019-08-24] MEDS: diltiaZEM HCL CD 180 MG CAP PO SCH (09:50)
[2019-08-24] MEDS: RIVAROXABAN 10 MG TAB PO SCH (09:50)
[2019-08-24] MEDS: SUCRALFATE 1 GM TAB PO SCH ×2 (09:50→21:15)
[2019-08-24] MEDS: MAGNESIUM OXIDE 400 MG TAB PO SCH (09:50)
[2019-08-24] MEDS: ALLOPURINOL 300 MG TAB PO SCH (09:50)
[2019-08-24] MEDS: CITALOPRAM HBR 20 MG TAB PO SCH (09:50)
[2019-08-24] MEDS: IV SET AND CAP CHANGE INJ INJ SCH (11:48)
[2019-08-24] MEDS ORDERED: levoFLOXacin 250MG IV 50 ML IVPB ONE (14:58)
[2019-08-24] MEDS: levoFLOXacin 250MG IV 250 MG in PREMIX BAG 1 BAG IVPB SCH (15:00)
[2019-08-24] MEDS: HYDROcodone 10MG/APAP 325MG 1 EA TAB PO PRN (18:25)
[2019-08-24] MEDS ORDERED: MAGNESIUM HYDROXIDE 30 ML UD PO ONE (21:00)
[2019-08-24] MEDS ORDERED: BISACODYL SUPPOSITORY 10 MG PR ONE (21:00)
[2019-08-24] MEDS: SIMVASTATIN 10 MG TAB PO SCH (21:14)
[2019-08-24] MEDS: metFORMIN HCL 500 MG TAB PO SCH (21:14)
[2019-08-24] MEDS: traZODone HCL 50 MG TAB PO SCH (21:14)
[2019-08-24] MEDS: DOCUSATE CALCIUM 240 MG CAP PO SCH (21:14)
[2019-08-25] MEDS: HYDROcodone 10MG/APAP 325MG 1 EA TAB PO PRN ×2 (04:21→22:50)
[2019-08-25] MEDS: INSULIN LISPRO 100 UNITS/ML PEN SUBCU SCH ×4 (07:09→22:48)
[2019-08-25] MEDS: METOPROLOL TARTRATE 25 MG TAB PO SCH ×2 (08:16→20:34)
[2019-08-25] MEDS: traMADol 37.5MG/APAP 325MG 1 EA TAB PO SCH ×2 (08:16→20:34)
[2019-08-25] MEDS: ACETAMINOPHEN W/COD #3 TAB 1 EA TAB PO SCH ×2 (08:17→20:33)
[2019-08-25] MEDS: CITALOPRAM HBR 20 MG TAB PO SCH (08:17)
[2019-08-25] MEDS: MAGNESIUM OXIDE 400 MG TAB PO SCH (08:17)
[2019-08-25] MEDS: RIVAROXABAN 10 MG TAB PO SCH (08:17)
[2019-08-25] MEDS: diltiaZEM HCL CD 180 MG CAP PO SCH (08:17)
[2019-08-25] MEDS: LEVOTHYROXINE SODIUM 0.025 MG TAB PO SCH (08:18)
[2019-08-25] MEDS: BIFIDOBACTERIUM INFANTIS 4 MG CAP PO SCH (08:18)
[2019-08-25] MEDS: DIGOXIN 0.125 MG TAB PO SCH (08:18)
[2019-08-25] MEDS: CELECOXIB 100 MG CAP PO SCH ×2 (08:18→17:34)
[2019-08-25] MEDS: SODIUM CHLORIDE 0.9% (FLUSH) 10 ML SYG IV SCH ×2 (08:18→20:39)
[2019-08-25] MEDS: SUCRALFATE 1 GM TAB PO SCH ×2 (08:32→20:39)
[2019-08-25] MEDS: POLYETHYLENE GLYCOL 3350 17 GM PCKT PO SCH (08:32)
[2019-08-25] MEDS: ALLOPURINOL 300 MG TAB PO SCH (08:33)
[2019-08-25] MEDS ORDERED: SODIUM CHLORIDE 0.9% 250ML 250 ML ONE (10:02)
[2019-08-25] MEDS ORDERED: VANCOMYCIN HCL INJ 1,000 MG VIAL IVPB ONE (10:03)
[2019-08-25] MEDS: VANCOMYCIN HCL INJ 750 MG in SODIUM CHLORIDE 0.9% 250ML 250 ML IVPB SCH (10:43)
--- NOTE | 2019-08-25 11:18 | PN ---
SUPERVISING PHYSICIAN: Nitesh Wilkinson MD DATE: 08/24/19 SUBJECTIVE: The patient is sitting up in her chair in her room. She has no complaints of shortness of breath, nausea or vomiting, chest pain. She is anxiously awaiting if she is going to be transferred to [facility] and we are awaiting their evaluation. OBJECTIVE: VITAL SIGNS: Temperature 96, heart rate 82, blood pressure 127/72, respiratory rate 16, oxygen saturation 99% on room air. CHEST: Essentially clear to auscultation bilaterally. HEART: Regular rate and rhythm. ABDOMEN: Soft, nondistended, nontender, positive bowel sounds. EXTREMITIES: There is a dressing to her right knee that is dry and intact. Her bilateral pedal pulses are palpable at +2. NEUROLOGIC: She is awake, alert and oriented x 3. LABORATORY: No laboratory studies or films to report. ASSESSMENT: 1. Septic right knee with hardware in place secondary to gram positive cocci requiring hardware removal and antibiotic spacer placement with no signs of sepsis. Postoperative day #3. 2. Chronic atrial fibrillation with a controlled rate, on Digoxin, Cardizem and Xarelto. 3. Urinary tract infection secondary to Escherichia coli that was pansensitive on cultures with the patient presently on Levaquin. 4. Hypertension, stable. 5. Type 2 diabetes mellitus on oral therapy. 6. History of breast cancer, bilateral mastectomy in 2009. PLAN: We will continue present supportive care including her physical therapy for strengthening and conditioning. Orthopedic issues will be per Dr. Zeb Hill, orthopedic surgeon. As of now, we are awaiting her acceptance to [facility] and depending on what their decision is, we will follow with that. Until then we will continue to monitor closely and follow as needed. [facility][id number] [facility]
[2019-08-25] MEDS: HYDROcodone 5MG/APAP 325MG 1 EA TAB PO PRN (13:17)
[2019-08-25] MEDS ORDERED: SODIUM CHLORIDE 0.9% 250ML 250 ML IVS PRN (13:21)
[2019-08-25] MEDS ORDERED: levoFLOXacin 250MG IV 50 ML IVPB ONE (14:21)
[2019-08-25] MEDS: levoFLOXacin 250MG IV 250 MG in PREMIX BAG 1 BAG IVPB SCH (14:23)
--- NOTE | 2019-08-25 15:16 | PN ---
SUPERVISING PHYSICIAN: Nitesh Wilkinson MD DATE: 08/25/19 SUBJECTIVE: The patient is sitting up in her chair in her room. She has no complaints of shortness of breath, nausea or vomiting, diarrhea, chest pain. We discussed her discharge plan as [facility] has not accepted her in transfer in that her daughter had talked to the nursing staff and the referral was sent to [facility]. We are awaiting that at this time. OBJECTIVE: VITAL SIGNS: Temperature 97, heart rate 50, blood pressure 100/65, respiratory rate 18, oxygen saturation 95% on room air. CHEST: Essentially clear to auscultation bilaterally. HEART: Regular rate and rhythm. ABDOMEN: Soft, nondistended, nontender, positive bowel sounds. EXTREMITIES: The incision to her right knee is without signs or symptoms of complications. Her bilateral pedal pulses are +2. NEUROLOGIC: She is awake, alert and oriented x 3. LABORATORY: No laboratory studies or films to report at this time. ASSESSMENT: 1. Septic right knee with hardware in place secondary to gram positive cocci requiring hardware removal and antibiotic spacer placement with no signs of sepsis. Postoperative day #4. 2. Chronic atrial fibrillation with a controlled rate, on Digoxin, Cardizem and Xarelto. 3. Urinary tract infection secondary to Escherichia coli that was pansensitive, presently on Levaquin. 4. Hypertension, stable. 5. Type 2 diabetes mellitus on oral therapy. 6. History of breast cancer, bilateral mastectomy in 2009. PLAN: We will continue present supportive care.. Orthopedic issues will be per Dr. Zeb Hill, orthopedic surgeon. She will continue there with her physical therapy for strengthening and conditioning. Her clinical information has been sent to [facility] for discharge with physical therapy and we will await to hear of their acceptance or refusal and hopefully we can transfer her there within the next day or 2 for physical therapy. Otherwise, we will continue to monitor closely and follow as needed. [facility][id number] [facility]
--- NOTE | 2019-08-25 15:46 | PN ---
DATE: 08/25/19 SUBJECTIVE: Ms. Clark is doing well and is up to the chair. . OBJECTIVE: She is afebrile. Vital signs are stable. Wound is clean. There are no signs or symptoms of infection. ASSESSMENT: Status post explantation of infected knee prosthesis. PLAN: The plan is to continue on with IV antibiotics. A consultation has been placed for transfer to inpatient [facility] facility. [facility][id number] [facility]
[2019-08-25] MEDS: metFORMIN HCL 500 MG TAB PO SCH (20:33)
[2019-08-25] MEDS: DOCUSATE CALCIUM 240 MG CAP PO SCH (20:33)
[2019-08-25] MEDS: SIMVASTATIN 10 MG TAB PO SCH (20:34)
[2019-08-25] MEDS: traZODone HCL 50 MG TAB PO SCH (20:39)
[2019-08-26] MEDS: HYDROcodone 10MG/APAP 325MG 1 EA TAB PO PRN ×2 (05:50→10:26)
[2019-08-26] MEDS: INSULIN LISPRO 100 UNITS/ML PEN SUBCU SCH ×4 (07:29→21:11)
[2019-08-26] MEDS: POLYETHYLENE GLYCOL 3350 17 GM PCKT PO SCH (08:40)
[2019-08-26] MEDS: LEVOTHYROXINE SODIUM 0.025 MG TAB PO SCH (08:40)
[2019-08-26] MEDS: diltiaZEM HCL CD 180 MG CAP PO SCH (08:41)
[2019-08-26] MEDS: DIGOXIN 0.125 MG TAB PO SCH (08:41)
[2019-08-26] MEDS: METOPROLOL TARTRATE 25 MG TAB PO SCH ×2 (08:41→20:09)
[2019-08-26] MEDS: RIVAROXABAN 10 MG TAB PO SCH (08:41)
[2019-08-26] MEDS: SUCRALFATE 1 GM TAB PO SCH ×2 (08:41→20:08)
[2019-08-26] MEDS: traMADol 37.5MG/APAP 325MG 1 EA TAB PO SCH ×2 (08:41→20:08)
[2019-08-26] MEDS: CELECOXIB 100 MG CAP PO SCH ×2 (08:41→17:40)
[2019-08-26] MEDS: ALLOPURINOL 300 MG TAB PO SCH (08:41)
[2019-08-26] MEDS: BIFIDOBACTERIUM INFANTIS 4 MG CAP PO SCH (08:41)
[2019-08-26] MEDS: ACETAMINOPHEN W/COD #3 TAB 1 EA TAB PO SCH (08:41)
[2019-08-26] MEDS: MAGNESIUM OXIDE 400 MG TAB PO SCH (08:42)
[2019-08-26] MEDS: CITALOPRAM HBR 20 MG TAB PO SCH (08:42)
[2019-08-26] MEDS: SODIUM CHLORIDE 0.9% (FLUSH) 10 ML SYG IV SCH ×2 (08:52→20:09)
[2019-08-26] MEDS ORDERED: SODIUM CHLORIDE 0.9% 250ML 250 ML ONE (09:36)
[2019-08-26] MEDS ORDERED: VANCOMYCIN HCL INJ 1,000 MG VIAL IVPB ONE (09:36)
[2019-08-26] MEDS: VANCOMYCIN HCL INJ 750 MG in SODIUM CHLORIDE 0.9% 250ML 250 ML IVPB SCH (09:46)
[2019-08-26] MEDS ORDERED: levoFLOXacin 250MG IV 50 ML IVPB ONE (14:22)
[2019-08-26] MEDS: levoFLOXacin 250MG IV 250 MG in PREMIX BAG 1 BAG IVPB SCH (14:29)
--- NOTE | 2019-08-26 16:25 | PN ---
SUPERVISING PHYSICIAN: Nitesh Wilkinson MD DATE: 08/26/19 SUBJECTIVE: The patient is sitting up in her chair in her room. She is aware that [facility] has declined her transfer and at this point we are considering [facility]. She has no complaints. OBJECTIVE: VITAL SIGNS: .Temperature 98.2 heart rate 65, blood pressure 125/71, respiratory rate 18, oxygen saturation 95% on room air. CHEST: Essentially clear to auscultation bilaterally. HEART: Regular rate and rhythm. ABDOMEN: Soft, nondistended, nontender, positive bowel sounds. EXTREMITIES: The incision to her right knee is without signs or symptoms of complications. Her bilateral pedal pulses are +2. NEUROLOGIC: She is awake, alert and oriented x 3. LABORATORY: No laboratory studies or films to report at this time. ASSESSMENT: 1. Septic right knee with hardware in place secondary to gram positive cocci requiring hardware removal and antibiotic spacer placement with no signs of sepsis. Postoperative day #4. 2. Chronic atrial fibrillation with a controlled rate, on Digoxin, Cardizem and Xarelto. 3. Urinary tract infection secondary to Escherichia coli that was pansensitive, presently on Levaquin. 4. Hypertension, stable. 5. Type 2 diabetes mellitus on oral therapy. 6. History of breast cancer, bilateral mastectomy in 2010. PLAN: We will continue present supportive care.. Orthopedic issues will be per Dr. Zeb Hill, orthopedic surgeon. She will continue there with her physical therapy for strengthening and conditioning. Her clinical information has been sent to [facility]. We have not heard if they have accepted transfer. Tomorrow, we will need to get Distribution Lead as well as physical therapy and Dr. Hill involved for her discharge planning. There may need to be a resubmission to [facility] based on her actual physical therapy status as well as her weight gain status. Otherwise, hopefully she can be transferred to [facility] for physical therapy for strengthening and conditioning. Otherwise, will continue to monitor closely and follow as needed. #[id number] [facility]
[2019-08-26] MEDS: metFORMIN HCL 500 MG TAB PO SCH (20:08)
[2019-08-26] MEDS: SIMVASTATIN 10 MG TAB PO SCH (20:09)
[2019-08-26] MEDS: DOCUSATE CALCIUM 240 MG CAP PO SCH (20:09)
[2019-08-26] MEDS: traZODone HCL 50 MG TAB PO SCH (20:09)
[2019-08-26] MEDS: traMADol HCL 50 MG TAB PO PRN (22:34)
[2019-08-27] MEDS: INSULIN LISPRO 100 UNITS/ML PEN SUBCU SCH ×2 (07:04→11:50)
[2019-08-27] MEDS: CELECOXIB 100 MG CAP PO SCH (07:44)
[2019-08-27] MEDS: POLYETHYLENE GLYCOL 3350 17 GM PCKT PO SCH (08:12)
[2019-08-27] MEDS: diltiaZEM HCL CD 180 MG CAP PO SCH (08:12)
[2019-08-27] MEDS: METOPROLOL TARTRATE 25 MG TAB PO SCH (08:13)
[2019-08-27] MEDS: MAGNESIUM OXIDE 400 MG TAB PO SCH (08:13)
[2019-08-27] MEDS: RIVAROXABAN 10 MG TAB PO SCH (08:13)
[2019-08-27] MEDS: ALLOPURINOL 300 MG TAB PO SCH (08:13)
[2019-08-27] MEDS: CITALOPRAM HBR 20 MG TAB PO SCH (08:14)
[2019-08-27] MEDS: BIFIDOBACTERIUM INFANTIS 4 MG CAP PO SCH (08:14)
[2019-08-27] MEDS: LEVOTHYROXINE SODIUM 0.025 MG TAB PO SCH (08:14)
[2019-08-27] MEDS: SUCRALFATE 1 GM TAB PO SCH (08:14)
[2019-08-27] MEDS: DIGOXIN 0.125 MG TAB PO SCH (08:15)
[2019-08-27] MEDS: SODIUM CHLORIDE 0.9% (FLUSH) 10 ML SYG IV SCH (08:15)
[2019-08-27] MEDS: traMADol HCL 50 MG TAB PO PRN ×2 (08:16→15:36)
[2019-08-27] MEDS: traMADol 37.5MG/APAP 325MG 1 EA TAB PO SCH (08:22)
[2019-08-27] MEDS ORDERED: SODIUM CHLORIDE 0.9% 250ML 250 ML ONE (09:26)
[2019-08-27] MEDS ORDERED: VANCOMYCIN HCL INJ 1,000 MG VIAL IVPB ONE (09:27)
[2019-08-27] MEDS: VANCOMYCIN HCL INJ 750 MG in SODIUM CHLORIDE 0.9% 250ML 250 ML IVPB SCH (09:32)
[2019-08-27] MEDS: IV SET AND CAP CHANGE INJ INJ SCH (09:36)
[2019-08-27] MEDS ORDERED: VANCOMYCIN HCL INJ 1,000 MG in SODIUM CHLORIDE 0.9% 250ML 250 ML IVPB SCH (10:00)
[2019-08-27 12:30] VITALS: BP 110/65; TEMP 97.5; O2SAT 96
--- NOTE | 2019-08-28 10:30 | PN ---
DATE: 08/27/19 SUBJECTIVE: Ms. Clark is doing well. OBJECTIVE: She is afebrile. Vital signs are stable. Wound is clean. There are no signs or symptoms of infection. ASSESSMENT: Status post I&D with removal of prosthesis. PLAN: The plan is to continue with her PICC line and IV antibiotics. She will be discharged to a [facility] facility. #[id number] [facility]
--- NOTE | 2019-08-31 13:05 | DS ---
SUPERVISING PHYSICIAN: Isaac Brown MD ADMISSION DIAGNOSIS: 1. Septic right knee with hardware secondary to gram positive cocci requiring hardware removal with antibiotic spacer placement with no signs of sepsis. 2. Chronic atrial fibrillation with a controlled rate, on Digoxin, Cardizem and Xarelto. 3. Urinary tract infection likely gram negative with positive nitrites,cultures pending, with the knee replacement with the gram positive cocci. 4. Hypertension. 5. Type 2 diabetes mellitus on oral therapy. 6. History of breast cancer, bilateral mastectomy in 2009. DISCHARGE DIAGNOSIS: 1. Septic right knee with hardware in place secondary to gram positive cocci requiring hardware removal and antibiotic spacer placement with no signs of sepsis. Postoperative day #5. 2. Chronic atrial fibrillation with a controlled rate, on Digoxin, Cardizem and Xarelto. 3. Urinary tract infection secondary to Escherichia coli that was pansensitive, presently on Levaquin. 4. Hypertension, stable. 5. Type 2 diabetes mellitus on oral therapy. 6. History of breast cancer, bilateral mastectomy in 2009. REASON FOR HOSPITALIZATION: Ms. Clark is a 74 year-old patient who has a history of knee replacement previously on the right. She started having some pain in the knee and was seen in the Emergency Room the first part of the month and was referred to Dr. Hill. After being seen by Dr. Hill, it was recommended that there was a possibility of an infection in that knee and she was admitted today for a right knee hardware removal with aspiration and irrigation of the joint with an antibiotic spacer placement and then admission to the medical/surgical floor for ongoing antibiotic therapy. LABORATORY: Hemoglobin 9.4, hematocrit 30.3. Chemistries showed sodium 132, creatinine 1.2, blood sugars stable between 116 and 154. Urinalysis showed 2+ bacteria with 20 to 30 WBCs and moderate amount of leukoesterase, positive nitrite. Drug screen was negative for all substances tested. She had several vancomycin toughs, last being on 08/26 that was 12.4. MICROBIOLOGY: Wound cultures were still pending at time of discharge. RADIOLOGY: No additional radiographic studies. HOSPITAL COURSE: Ms. Clark was admitted for removal of hardware and incision and drainage of her knee with antibiotic spacer placement done by Dr. Hill. She did well postoperatively. She did have a urinary tract infection and was started on Levaquin as well as antibiotics for the incision and drainage and questionable MRSA infection with vancomycin and Ancef. The patient did well, she stayed stable. She remained in an immobilizer and it was felt that on day of discharge she was stable enough to continue with outpatient management. PLAN: Ms. Clark was discharged on 08/27/19 to [facility]. Diet - ADA diet, 1800 calories with nutritional consultation. Activities: No weightbearing on the right leg, to remain immobilized in a brace and a consultation with physical therapy for evaluation and treatment. Nursing orders were as per protocol. They were instructed to call Dr. Cordon's office to inform him of admission and orders for continued vancomycin infusion. PICC line was placed per protocol and care on discharge. Medications continued included vancomycin from MRSA future troughs and draws per Dr. Cordon's office for a total of 6 weeks. All other medications were continued as per medical administration record. They were to call Dr. Hill's office to schedule a date and times for followup. Condition on Discharge: Stable and improved. Disposition: The patient was discharged to [facility]. #[id number] [facility]
== END 2019-08-27 15:50 | disposition home or self-care (01) | DRG 464 ==
LOC: AMB 05:45 → MS 11:45
PROVIDERS: ADMIT Orthopaedic Surgery; ATTEND Nurse Practitioner Family
PROC: 0SPC0JZ Removal of Synthetic Substitute from Right Knee Joint, Open Approach (ICD-10-PCS; principal; 2019-08-21 08:00)
PROC: 0SHC08Z Insertion of Spacer into Right Knee Joint, Open Approach (ICD-10-PCS; 2019-08-21 08:00)
PROC: 02HV33Z Insertion of Infusion Device into Superior Vena Cava, Percutaneous Approach (ICD-10-PCS; 2019-08-22)
DX: T84.53XA Infection and inflammatory reaction due to internal right knee prosthesis, initial encounter (principal); M00.9 Pyogenic arthritis, unspecified; I48.20 Chronic atrial fibrillation, unspecified; N39.0 Urinary tract infection, site not specified; I25.10 Atherosclerotic heart disease of native coronary artery without angina pectoris; I10 Essential (primary) hypertension; J44.9 Chronic obstructive pulmonary disease, unspecified; E11.9 Type 2 diabetes mellitus without complications; Y79.2 Prosthetic and other implants, materials and accessory orthopedic devices associated with adverse incidents; Y92.9 Unspecified place or not applicable; Z96.653 Presence of artificial knee joint, bilateral; Z88.1 Allergy status to other antibiotic agents; Z88.0 Allergy status to penicillin; Z85.3 Personal history of malignant neoplasm of breast; Z98.84 Bariatric surgery status; Z79.891 Long term (current) use of opiate analgesic; Z79.01 Long term (current) use of anticoagulants; Z79.84 Long term (current) use of oral hypoglycemic drugs; Z79.899 Other long term (current) drug therapy; Z87.891 Personal history of nicotine dependence

== ENCOUNTER → 2019-10-15 | Outpatient (CLI) | payer MEDICARE, MEDICAID | LOC: LAB.O 10:01 | PROVIDERS: ATTEND Orthopaedic Surgery | DX: M25.561 Pain in right knee (principal) ==

== ENCOUNTER 2020-01-08 12:05 | Emergency (ER) | payer MEDICARE, MEDICAID ==
--- NOTE | 2020-01-08 13:35 | RAD ---
EXAM DESCRIPTION: Chest,2 Views CLINICAL HISTORY: 74 years Female, dyspnea COMPARISON: August 22, 2019 FINDINGS: 2 views/radiographs Heart size and pulmonary vessels are within normal limits. There is no pneumothorax or pleural effusion. The lungs are clear bilaterally. The soft tissues are unremarkable. No acute osseous findings. IMPRESSION: No acute cardiopulmonary abnormality. Electronically signed by: Trace Ordoñez MD 01/08/2020 1:34 PM CDT
--- NOTE | 2020-01-08 14:42 | ED.PDOC ---
History of Present Illness - General Chief Complaint: Respiratory Problem Stated Complaint: difficulty breathing Time Seen by Provider: 01/08/20 13:24 Source: patient Exam Limitations: no limitations - History of Present Illness Initial Comments: 1 WK SOB. IN NOVEMBER, PT HAD RT KNEE REPLACEMENT. LAST WEEK SHE STARTED NAPROXEN FOR R KNEE PAIN. PT FEELS HER DYSPNEA COMMENCED AT THAT TIME. SHE HAS STOPPED THE NAPROXEN BUT SOB PERSISTS. CHRONIC AFIB. SEES DR. HICKS, CARDS. CHRONIC RENAL FAILURE. H/O BL MASTECTOMY FOR BREAST CANCER. Timing/Duration: 1 week Severity: severe Activities at Onset: none Possible Cause: unknown cause Improving Factors: nothing Worsening Factors: movement Associated Symptoms: cough Respiratory Risk Factors: no cause identified Allergies/Adverse Reactions: Allergies Cephalexin [From Keflex] Allergy (Intermediate, Verified 08/21/19 06:46) Rash Penicillins Allergy (Intermediate, Verified 08/21/19 06:46) Rash Home Medications: Ambulatory Orders Citalopram Hydrobromide 20 mg PO DAILY 11/02/12 Lovastatin 20 mg PO DAILY 06/05/15 Sucralfate Tab [Carafate Tab] 1 gm PO BID 06/05/15 Metoprolol Tartrate 50 mg PO BID 06/30/15 Digoxin 0.125 mg PO DAILY 03/28/16 Diltiazem HCl Coated Beads [Cartia Xt] 180 mg PO DAILY 03/28/16 Rivaroxaban [Xarelto] 20 mg PO DAILY 03/28/16 Trazodone HCl 50 mg PO BEDTIME 03/28/16 Acetaminophen W/ Codeine [Tylenol W/ CODEINE #3] 1 ea PO Q6HRS #30 04/12/19 Allopurinol 300 mg PO DAILY 04/12/19 Levothyroxine Sodium 50 mcg PO DAILY 04/12/19 Metformin HCl [Metformin Hydrochloride] 1,000 mg PO BEDTIME 04/12/19 traMADol 37.5MG/APAP 325MG [Ultracet] 1 ea PO BID 08/20/19 Aluminum & Magnesium Hydroxide [Maalox] 30 ml PO Q4H PRN ud 08/27/19 Bifidobacterium Infantis [Align] 4 mg PO DAILY cap 08/27/19 Bisacodyl Suppository 10Mg [Dulcolax Suppository 10mg] 1 ea W[place] DAILY PRN sup 08/27/19 Docusate Calcium [Surfak] 240 mg PO BEDTIME cap 08/27/19 Magnesium Hydroxide [Milk Of Magnesia] 30 ml PO DAILY PRN ud 08/27/19 Magnesium Oxide [Mag-Ox Tab] 400 mg PO DAILY tab 08/27/19 Polyethylene Glycol 3350 [Miralax] 17 gm PO DAILY pckt 08/27/19 Vancomycin HCl 1,000 mg IV Q24HR 42 Days #1 inj 08/27/19 Review of Systems - Review of Systems Constitutional: Denies: chills, fever EENTM: States: no symptoms reported Respiratory: States: cough, short of breath Cardiology: Denies: chest pain, palpitations Gastrointestinal/Abdominal: Denies: diarrhea, nausea, vomiting Genitourinary: States: no symptoms reported Musculoskeletal: States: no symptoms reported Skin: States: no symptoms reported Neurological: States: no symptoms reported Endocrine: States: no symptoms reported Hematologic/Lymphatic: States: no symptoms reported All other Systems: Reviewed and Negative Past Medical History (General) - Patient Medical History Hx Seizures: No Hx Stroke: No Hx Asthma: No Hx of COPD: Yes Hx Cardiac Disorders: Yes - Atrial fib,Bradycardia Hx Congestive Heart Failure: No Hx Pacemaker: No Hx Hypertension: Yes Hx Thyroid Disease: Yes Hx Diabetes: Yes - TAKING METFORMIN Hx Gastroesophageal Reflux: Yes Hx Renal Disease: Yes Hx Cancer: Yes - Breast and Uterine Hx Hepatitis C: No Hx MRSA: No - Vaccination History Hx Tetanus, Diphtheria Vaccination: Yes Hx Influenza Vaccination: Yes Hx Pneumococcal Vaccination: Yes - Social History Hx Tobacco Use: Yes Hx Chewing Tobacco Use: No Hx Alcohol Use: No Hx Substance Use: No Hx Substance Use Treatment: No Hx Depression: Yes - SITUATIONAL Hx Physical Abuse: No Hx Emotional Abuse: Yes Hx Suspected Abuse: No - Female History Patient : No Family Medical History - Family History Mother Family History: No Known Living Status: Physical Exam - Physical Exam General Appearance: Alert, Obese Eyes, Ears, Nose, Throat Exam: PERRL/EOMI, normal ENT inspection Neck: non-tender, full range of motion, supple, normal inspection Respiratory: chest non-tender, lungs clear, normal breath sounds, no respiratory distress, no accessory muscle use, other - O2 SATS 97% RA. Cardiovascular/Chest: no edema, no JVD, no murmur Peripheral Pulses: radial,right: 1+, radial,left: 1+ Gastrointestinal/Abdominal: normal bowel sounds, non tender, soft Extremity: normal inspection, no calf tenderness, pedal edema - MILD ANKLE EDEMA R GREATER THAN L. PER PT, WORSE ON R SINCE KNEE SURGERY. NEG OSCAR'S SIGN. Neurologic: no motor/sensory deficits, normal mood/affect Skin Exam: normal color, warm/dry Lymphatic: no adenopathy Progress - Progress Progress: 01/08/20 14:41 TROPONIN WAS DRAWN 2 HRS AGO (12:50 PM) AND STILL NOT RESULTED. I INQUIRED WITH LAB JUST NOW AND THEY SAID MACHINE IS UNDERGOING "ROUTINE MAINTENANCE". I EXPRESSED MY CONCERN FOR PATIENT SAFETY, IT IS MID-DAY WITH A BUSY ER AND THERE ARE CURRENTLY 3 PATIENTS IN THE ER WITH POTENTIAL NM'S ON WHOM I AM WAITING FOR TROPONINS AND A RESULT I AM UNABLE TO DETERMINE IF THE PATIENT HAS ACS FOR THE PAST 2 HRS SINCE THERE ARE NO TROPININS RESULTING. I VOICED MY CONCERN TO MARLA, ER DIRECTOR, TO SEE IF THIS IS SOMETHING THAT CAN BE DONE AT, FOR EXAMPLE, 3 AM IN THE FUTURE, SO TO OPTIMIZE PATIENT CARE. 01/08/20 15:08 CARDIAC ENZYMES STILL PENDING. 01/08/20 15:16 CBC - SEVERE ANEMIA, HGB 7.4. GIVING 2UNITS PRBC. ETX UNCLEAR AT THIS POINT. NO GI BLEED C/O. HAD R KNEE SURGERY BUT IN NOVEMBER. BMP - ELEV BUN AND CR, C/W KNOWN CRF. HYPERKALEMIA. CXR NO ABNORMALITIES. CXR NEG. EKG AFIB, CHRONIC, RATE CONTROLLED - ON XARELTO AND METOPROLOL. COAGS NEG. COVID PENDING. BNP ELEV AT 801. CLINICALLY NOT IN ACUTE HEART FAILURE, LUNGS CLEAR (CXR CLEAR, NO CRACKLES), NO JVD, AND ONLY MILD ANKLE EDEMA. I WILL NOT GIVE LASIX SINCE ALSO HAS CRF. HER BNP COULD BE HIGH D/T THE ANEMIA, THUS PRBC MIGHT HELP. D-DIMER ELEVATED AT 1,400. UNABLE TO GET CHEST CT ANGIOGRAM TO EVAL FOR P.E. D/T LOW GFR (34), THUS NEEDS V/Q SCAN. THUS WILL TRANSFER TO [facility]. IS ON XARELTO FOR AFIB. 01/08/20 15:24 TROPONIN STILL PENDING. 01/08/20 17:11 TROP NEG. (DYSPNEA X 1 WK, THUS ABLE TO R/O ACS WITH 1 SET OF CARD ENZ.) COVID NEG. 2 UNITS [facility] ARE READY AND WILL START TRANSFUSION PRESENTLY. 01/08/20 17:23 DR. HINDS, FOR [facility], ACCEPTED TRANSFER. THANK YOU, , AND [facility], FOR ACCEPTING FURTHER CARE OF OUR MUTUAL PATIENT. Departure - Departure Clinical Impression: Elevated d-dimer, Hyperkalemia, Transfusion of blood during current hospitalisation, Elevated brain natriuretic peptide (BNP) level Dyspnea Qualifiers: Dyspnea type: shortness of breath Qualified Code(s): R06.02 - Shortness of breath Chronic renal failure Qualifiers: Chronic kidney disease stage: unspecified stage Qualified Code(s): N18.9 - Chronic kidney disease, unspecified Anemia Qualifiers: Anemia type: unspecified type Qualified Code(s): D64.9 - Anemia, unspecified Atrial fibrillation Qualifiers: Atrial fibrillation type: unspecified chronic Qualified Code(s): I48.20 - Chronic atrial fibrillation, unspecified Disposition: Transfer to Hospital Condition: Poor Departure Forms: Patient Portal Self Enrollment Referrals: Joseph Cordon MD [Primary Care Provider] - 1-2 Weeks Home Medications: Ambulatory Orders Citalopram Hydrobromide 20 mg PO DAILY 11/02/12 Lovastatin 20 mg PO DAILY 06/05/15 Sucralfate Tab [Carafate Tab] 1 gm PO BID 06/05/15 Metoprolol Tartrate 50 mg PO BID 06/30/15 Digoxin 0.125 mg PO DAILY 03/28/16 Diltiazem HCl Coated Beads [Cartia Xt] 180 mg PO DAILY 03/28/16 Rivaroxaban [Xarelto] 20 mg PO DAILY 03/28/16 Trazodone HCl 50 mg PO BEDTIME 03/28/16 Acetaminophen W/ Codeine [Tylenol W/ CODEINE #3] 1 ea PO Q6HRS #30 04/12/19 Allopurinol 300 mg PO DAILY 04/12/19 Levothyroxine Sodium 50 mcg PO DAILY 04/12/19 Metformin HCl [Metformin Hydrochloride] 1,000 mg PO BEDTIME 04/12/19 traMADol 37.5MG/APAP 325MG [Ultracet] 1 ea PO BID 08/20/19 Aluminum & Magnesium Hydroxide [Maalox] 30 ml PO Q4H PRN ud 08/27/19 Bifidobacterium Infantis [Align] 4 mg PO DAILY cap 08/27/19 Bisacodyl Suppository 10Mg [Dulcolax Suppository 10mg] 1 ea [place] DAILY PRN sup 08/27/19 Docusate Calcium [Surfak] 240 mg PO BEDTIME cap 08/27/19 Magnesium Hydroxide [Milk Of Magnesia] 30 ml PO DAILY PRN ud 08/27/19 Magnesium Oxide [Mag-Ox Tab] 400 mg PO DAILY tab 08/27/19 Polyethylene Glycol 3350 [Miralax] 17 gm PO DAILY pckt 08/27/19 Vancomycin HCl 1,000 mg IV Q24HR 42 Days #1 inj 08/27/19 Transfer to Outside Facility - Transfer Information Decision to Transfer Date: 01/08/20 Decision to Transfer Time: 15:23 Reason for Transfer: specialized care not available Accepting Facility: [facility]
[2020-01-08 17:57] VITALS: O2SAT 94
[2020-01-08 17:59] VITALS: BP 127/69
[2020-01-08 18:57] VITALS: TEMP 97
== END 2020-01-08 17:55 | disposition short-term general hospital (02) ==
LOC: ER 12:05
DX: R06.02 Shortness of breath (principal); D64.9 Anemia, unspecified; I48.20 Chronic atrial fibrillation, unspecified; N18.9 Chronic kidney disease, unspecified; R79.89 Other specified abnormal findings of blood chemistry; E87.5 Hyperkalemia; E11.22 Type 2 diabetes mellitus with diabetic chronic kidney disease; I12.9 Hypertensive chronic kidney disease with stage 1 through stage 4 chronic kidney disease, or unspecified chronic kidney disease; J44.9 Chronic obstructive pulmonary disease, unspecified; E07.9 Disorder of thyroid, unspecified; K21.9 Gastro-esophageal reflux disease without esophagitis; F32.9 Major depressive disorder, single episode, unspecified; Z20.828 Contact with and (suspected) exposure to other viral communicable diseases; Z96.651 Presence of right artificial knee joint; Z85.3 Personal history of malignant neoplasm of breast; Z85.42 Personal history of malignant neoplasm of other parts of uterus; Z79.84 Long term (current) use of oral hypoglycemic drugs; Z79.899 Other long term (current) drug therapy; Z87.891 Personal history of nicotine dependence; Z79.01 Long term (current) use of anticoagulants; Z88.1 Allergy status to other antibiotic agents; Z88.0 Allergy status to penicillin
CPT/HCPCS: 36415; 71046; 80048; 82550; 82553; 83880; 84484; 85025; 85379; 85610; 86922; 87635; 93005; P9016

== ENCOUNTER 2020-01-13 06:53 | Emergency (ER) | payer MEDICARE, MEDICAID ==
[2020-01-13] MEDS ORDERED: LORazepam 0.5 MG TAB PO ONE (07:01)
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
--- NOTE | 2020-01-13 07:38 | RAD ---
Exam(s): XR CHEST 1 VIEW: 01/13/2020 7:00 AM CDT Indication: palpitations MAIN Comparison Study Date: January 08, 2020 Technique: AP chest radiograph. Findings: The lungs are clear. No airspace abnormality is identified. No pleural effusion or pneumothorax. Heart size is normal. Normal mediastinal contours. No bone abnormality is identified. IMPRESSION: No cardiopulmonary abnormality is identified. Electronically signed by: Phoenix Mae MD 01/13/2020 7:36 AM CDT
[2020-01-13 08:58] VITALS: BP 120/62; TEMP 97.7; O2SAT 92
== END 2020-01-13 08:58 | disposition home or self-care (01) ==
LOC: ER 06:53
DX: I48.20 Chronic atrial fibrillation, unspecified (principal); E03.9 Hypothyroidism, unspecified; G25.81 Restless legs syndrome; I48.92 Unspecified atrial flutter; J44.9 Chronic obstructive pulmonary disease, unspecified; I10 Essential (primary) hypertension; E11.9 Type 2 diabetes mellitus without complications; K21.9 Gastro-esophageal reflux disease without esophagitis; Z79.84 Long term (current) use of oral hypoglycemic drugs; Z85.3 Personal history of malignant neoplasm of breast; Z85.42 Personal history of malignant neoplasm of other parts of uterus; Z87.891 Personal history of nicotine dependence; Z79.899 Other long term (current) drug therapy; Z88.0 Allergy status to penicillin; Z88.1 Allergy status to other antibiotic agents; Z98.890 Other specified postprocedural states

== ENCOUNTER → 2020-01-14 | Outpatient (CLI) | payer MEDICARE, MEDICAID | LOC: ECHO 12:57 | PROVIDERS: ATTEND Family Medicine | DX: I34.0 Nonrheumatic mitral (valve) insufficiency (principal); I51.7 Cardiomegaly; R60.0 Localized edema ==

== ENCOUNTER → 2020-03-05 | Outpatient (CLI) | payer MEDICARE, MEDICAID | LOC: GMA MATASK 15:10 | PROVIDERS: ATTEND Family Medicine | DX: N39.0 Urinary tract infection, site not specified (principal) ==

== ENCOUNTER 2020-07-01 09:24 | Observation (INO) | payer MEDICARE, MEDICAID ==
[2020-07-01] MEDS ORDERED: SODIUM CHLORIDE 0.9% (FLUSH) 10 ML SYG IV PRN ×2 (09:50→13:19)
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
[2020-07-01] MEDS ORDERED: SODIUM CHLORIDE 0.9% 1000ML 1,000 ML IVS ONE (10:52)
[2020-07-01] MEDS ORDERED: SODIUM CHLORIDE 0.9% 1000ML 1,000 ML ONE (10:53)
--- NOTE | 2020-07-01 11:03 | RAD ---
EXAM DESCRIPTION: Chest,1 View CLINICAL HISTORY: cough, SOB COMPARISON: January 13, 2020 IMPRESSION: Single AP portable upright view of the chest shows mild enlargement of the cardiac silhouette without pulmonary vascular congestion.. Lungs are normally aerated. Mild subtle areas of interstitial thickening in the lungs mainly in the mid to lower lung angelo could represent developing pneumonia. Consider viral pneumonia.. No obvious pleural effusion or pneumothorax is seen. Electronically signed by: Olman Cottrell MD 07/01/2020 11:01 AM [facility]
--- NOTE | 2020-07-01 12:11 | HP ---
SUPERVISING PHYSICIAN: Zeb Maria MD CHIEF COMPLAINT: Shortness of breath. HISTORY OF PRESENT ILLNESS: This is a 75-year-old female who came to the Emergency Room with cough and shortness of breath. She was sent by her primary care physician for evaluation. Apparently her symptoms started on 06/17/20 and she tested positive for COVID on 06/20/20. She had fever that day, but has not had any since. However, she has progressively gotten more short of breath since that time. In the ER, she was evaluated and noted to have O2 saturations from 94 to 96% on room air and at rest, not really short of breath, however, with minimal exertion, she does get short of breath. She states she does not have any chronic obstructive pulmonary disease although she smoked several years ago. She also quit several years ago. She states she does get bronchitis/pneumonia frequently due to "small lungs." In the Emergency Room, she also had lab work which was pretty much unremarkable other than the fact that her D-dimer was elevated at 675 and CRP was 3.7. Chest x-ray was done and showed bilateral patchy infiltrates consistent with viral pneumonia. She was referred for observational admission. At time of examination, the patient is alert without any distress. She only complains of a mild headache. PAST MEDICAL HISTORY: 1. Hypertension. 2. Atrial fibrillation. 3. Diabetes mellitus, type 2. 4. History of breast cancer in 2009. 5. Gastric ulcers. 6. Hypothyroidism. PAST SURGICAL HISTORY: 1. Cataract surgery. 2. Right knee surgery. 3. Hysterectomy. 4. Gastric bypass surgery. 5. Knee replacements. 6. Bilateral mastectomies. MEDICATIONS: Please see medication reconciliation list once verified in the computer. ALLERGIES: KEFLEX, PENICILLIN. FAMILY HISTORY: Father at age 46 due to tuberculosis. Mother at age 56 due to alcohol poisoning. She has four brothers with history of lung cancer. SOCIAL HISTORY: The patient has a distant history of smoking. No alcohol, no illicit drugs. REVIEW OF SYSTEMS: CONSTITUTIONAL: No significant fever or chills. No recent weight loss or weight gain. HEENT: Positive for headache. No ear pain, nasal congestion or throat pain. RESPIRATORY: Positive for shortness of breath and cough. No hemoptysis. CARDIOVASCULAR: No chest pain, palpitations or peripheral edema. GASTROINTESTINAL: No nausea, vomiting, diarrhea, constipation or abdominal pain. GENITOURINARY: No dysuria, frequency or flank pain. ENDOCRINE: No polydipsia, polyuria or polyphagia. No heat or cold intolerance. MUSCULOSKELETAL: No joint pain, joint swelling or muscle cramps. NEUROLOGIC: No syncope, paresthesias or seizures. PHYSICAL EXAMINATION: VITAL SIGNS: Blood pressure 115/78, heart rate 90, respiratory rate 18, temperature 97.5, oxygen saturation 95%. GENERAL: Ms. Clark is a 75-year-old female who is in no active distress currently. NEUROLOGIC: The patient is alert and oriented. LUNGS: Clear to auscultation bilaterally. CARDIOVASCULAR: Regular rate and rhythm. Normal S1, S2. ABDOMEN: Soft. Positive bowel sounds. EXTREMITIES: Lower extremities with no significant edema. Pulses 2+. Capillary refill is less than 2 seconds. LABORATORY: Labs and films are as discussed in history of present illness. IMPRESSION: 1. COVID pneumonitis. 2. Atrial fibrillation. 3. Diabetes mellitus, type 2. 4. Hypothyroidism. 5. Hypertension. PLAN: The patient will be admitted and placed on empiric Remdesivir as well as dexamethasone and empiric antibiotic therapy. I have chosen doxycycline due to conflicts with other antibiotics with her home medications. We will resume her home anticoagulation as well as proton pump inhibitor. I have also placed her on scheduled bronchodilator therapy and bronchial hygiene as well as Mucinex. I will resume her home medications once they are verified in the computer. I will put her on sliding scale insulin as well due to the fact she could potentially have hyperglycemia due to the steroid. We will recheck labs and x-rays as needed. #[id number] [facility]
[2020-07-01] MEDS ORDERED: REMDESIVIR 200 MG in SODIUM CHLORIDE 0.9% 250ML 250 ML IVPB ONE (13:21)
[2020-07-01] MEDS ORDERED: DEXTROSE 50% 25 GM/50 ML SYG IV PRN (13:26)
[2020-07-01] MEDS ORDERED: GLUCAGON INJ 1 MG VIAL SUBCU PRN (13:26)
[2020-07-01] MEDS ORDERED: IV SET AND CAP CHANGE INJ INJ SCH (13:30)
[2020-07-01] MEDS ORDERED: cefTRIAXone SODIUM 1 GM in SODIUM CHL 0.9% 50ML MIN-BAG+ 50 ML IVPB SCH (13:30)
[2020-07-01] MEDS ORDERED: AZITHROMYCIN IV 500 MG in SODIUM CHLORIDE 0.9% 250ML 250 ML IVPB SCH (13:30)
[2020-07-01] MEDS ORDERED: SUCRALFATE 1 GM TAB PO ONE (13:44)
[2020-07-01] MEDS ORDERED: PANTOPRAZOLE SODIUM TAB 40 MG PO ONE (13:44)
[2020-07-01] MEDS ORDERED: SODIUM CHLORIDE 0.9% 250ML 250 ML ONE (13:45)
[2020-07-01] MEDS ORDERED: REMDESIVIR IV 100 MG VIAL ONE (13:45)
[2020-07-01] MEDS: DEXAMETHASONE INJ 10 MG/ML VIAL IV SCH (13:46)
[2020-07-01] MEDS: FERROUS SULFATE 325 MG TAB PO SCH (13:46)
[2020-07-01] MEDS: ACETAMINOPHEN 500 MG TAB PO PRN (13:49)
[2020-07-01] MEDS: DOXYCYCLINE HYCLATE IV 100 MG in SODIUM CHLORIDE 0.9% 250ML 250 ML IVPB SCH (16:08)
[2020-07-01] MEDS: SUCRALFATE 1 GM TAB PO SCH (16:09)
[2020-07-01] MEDS: ALBUTEROL INHALER 64 PUFF/8GM INH SCH ×2 (16:15→21:08)
[2020-07-01] MEDS: INSULIN LISPRO 100 UNITS/ML PEN SUBCU SCH ×2 (16:16→20:25)
[2020-07-01] MEDS: PANTOPRAZOLE SODIUM TAB 40 MG PO SCH (16:28)
[2020-07-01] MEDS ORDERED: guaiFENesin ER TAB 600 MG TAB ONE (19:27)
[2020-07-01] MEDS ORDERED: traZODone HCL 50 MG TAB ONE (19:27)
[2020-07-01] MEDS ORDERED: LORazepam 1 MG TAB ONE (19:27)
[2020-07-01] MEDS ORDERED: METOPROLOL TARTRATE 25 MG TAB ONE (19:27)
[2020-07-01] MEDS ORDERED: ATORVASTATIN 20 MG TAB PO ONE (19:28)
[2020-07-01] MEDS ORDERED: metFORMIN HCL 500 MG TAB ONE (19:28)
[2020-07-01] MEDS: guaiFENesin ER TAB 600 MG TAB PO SCH (20:23)
[2020-07-01] MEDS: ATORVASTATIN 20 MG TAB PO SCH (20:23)
[2020-07-01] MEDS: METOPROLOL TARTRATE 25 MG TAB PO SCH (20:23)
[2020-07-01] MEDS: traZODone HCL 50 MG TAB PO SCH (20:24)
[2020-07-01] MEDS: LORazepam 1 MG TAB PO SCH (20:24)
[2020-07-01] MEDS: metFORMIN HCL 500 MG TAB PO SCH (20:25)
[2020-07-02] MEDS: DOXYCYCLINE HYCLATE IV 100 MG in SODIUM CHLORIDE 0.9% 250ML 250 ML IVPB SCH ×2 (00:35→14:17)
[2020-07-02] MEDS ORDERED: LEVOTHYROXINE SODIUM 0.025 MG TAB ONE (03:41)
[2020-07-02] MEDS: LEVOTHYROXINE SODIUM 0.025 MG TAB PO SCH (06:10)
[2020-07-02] MEDS: PANTOPRAZOLE SODIUM TAB 40 MG PO SCH ×2 (06:10→16:20)
[2020-07-02] MEDS: SUCRALFATE 1 GM TAB PO SCH ×2 (06:10→16:20)
--- NOTE | 2020-07-02 07:12 | RAD ---
EXAMINATION: Chest x-ray one view. INDICATION: Covid 19 COMPARISON: 07/01/2020 TECHNIQUE: Frontal radiograph chest. FINDINGS: Overlying EKG leads and wires obscure portions of the lungs. The cardiac silhouette is normal in size. Minimal patchy airspace opacities are present at both lung bases. There is no pneumothorax. IMPRESSION: Minimal patchy airspace opacities are present at both lung bases. Electronically signed by: Shen Laurent MD 07/02/2020 7:10 AM [facility]
[2020-07-02] MEDS: INSULIN LISPRO 100 UNITS/ML PEN SUBCU SCH ×4 (07:59→20:53)
[2020-07-02] MEDS ORDERED: MULTIPLE VITAMIN 1 EA TAB PO ONE (08:03)
[2020-07-02] MEDS ORDERED: MAGNESIUM SULFATE PREMIX 2GM 2 GM in PREMIX BAG 1 BAG IVPB ONE (08:04)
[2020-07-02] MEDS ORDERED: FUROSEMIDE 40 MG TAB ONE (08:04)
[2020-07-02] MEDS ORDERED: ALLOPURINOL 300 MG TAB PO ONE (08:04)
[2020-07-02] MEDS ORDERED: CITALOPRAM HBR 20 MG TAB ONE (08:04)
[2020-07-02] MEDS ORDERED: SODIUM CHLORIDE 0.9% 250ML 250 ML ONE (08:05)
[2020-07-02] MEDS ORDERED: DIGOXIN 0.125 MG TAB ONE (08:05)
[2020-07-02] MEDS ORDERED: REMDESIVIR IV 100 MG VIAL ONE (08:05)
[2020-07-02] MEDS ORDERED: MAGNESIUM SULFATE PREMIX 2GM 50 ML IVPB ONE (08:06)
[2020-07-02] MEDS: DIGOXIN 0.125 MG TAB PO SCH (08:20)
[2020-07-02] MEDS: LORazepam 1 MG TAB PO SCH ×2 (08:20→20:52)
[2020-07-02] MEDS: FERROUS SULFATE 325 MG TAB PO SCH (08:23)
[2020-07-02] MEDS: guaiFENesin ER TAB 600 MG TAB PO SCH ×2 (08:23→20:52)
[2020-07-02] MEDS: MULTIPLE VITAMIN 1 EA TAB PO SCH (08:23)
[2020-07-02] MEDS: DEXAMETHASONE INJ 10 MG/ML VIAL IV SCH (08:24)
[2020-07-02] MEDS: FUROSEMIDE 40 MG TAB PO SCH (08:24)
[2020-07-02] MEDS: METOPROLOL TARTRATE 25 MG TAB PO SCH ×2 (08:24→20:52)
[2020-07-02] MEDS: CITALOPRAM HBR 20 MG TAB PO SCH (08:24)
[2020-07-02] MEDS: ALLOPURINOL 300 MG TAB PO SCH (08:25)
[2020-07-02] MEDS: ALBUTEROL INHALER 64 PUFF/8GM INH SCH ×4 (08:49→21:00)
[2020-07-02] MEDS: REMDESIVIR 100 MG in SODIUM CHLORIDE 0.9% 250ML 250 ML IVPB SCH (09:45)
[2020-07-02] MEDS: RIVAROXABAN 15 MG TAB PO SCH (12:12)
--- NOTE | 2020-07-02 15:10 | PN ---
SUPERVISING PHYSICIAN: Zeb Maria MD DATE: 07/02/20 SUBJECTIVE: The patient is sitting up in her chair. She is much less short of breath than she was yesterday, but she also complains of weakness. She does get short of breath with any exertion, but her O2 saturations are staying above 91%. We discussed discharge and she would like [facility] and will have physical therapy at that time. OBJECTIVE: VITAL SIGNS: Temperature 97.5, heart rate 68, blood pressure 106/66, respiratory rate 18 to 24, O2 saturation 94% on room air. RESPIRATORY: Somewhat diminished at the bases. She is also slightly tachypneic with exertion. CARDIAC: Regular rate and rhythm. NEUROLOGIC: Awake, alert and oriented times three. LABORATORY: WBCs 3.9, hemoglobin 12, hematocrit 36.9, platelet count 105. D- dimer 266. Electrolytes are basically within normal limits with the exception of her magnesium is slightly low at 1.6. C-reactive protein is 2.5. MICROBIOLOGY: Preliminary urine culture shows no growth after 24 hours. Preliminary blood cultures show no growth after 24 hours. RADIOLOGY: Chest x-ray shows minimal patchy airspace opacities present in both lung bases. All other labs and films have been reviewed via the EMR. ASSESSMENT: 1. COVID pneumonitis. 2. Atrial fibrillation. 3. Diabetes mellitus, type 2. 4. Hypothyroidism. 5. Hypertension. PLAN: We will continue present supportive care including the COVID guidelines. She will continue on the COVID medications. Hopefully, she can be discharged tomorrow. She will need [facility] with physical therapy. I have given her some magnesium supplementation and we will repeat her labs in the morning. We will continue to monitor and treat as needed. #[id number] [facility]
[2020-07-02] MEDS: ATORVASTATIN 20 MG TAB PO SCH (20:52)
[2020-07-02] MEDS: traZODone HCL 50 MG TAB PO SCH (20:52)
[2020-07-02] MEDS: metFORMIN HCL 500 MG TAB PO SCH (20:52)
[2020-07-02] MEDS: ACETAMINOPHEN 500 MG TAB PO PRN (23:37)
[2020-07-03] MEDS: DOXYCYCLINE HYCLATE IV 100 MG in SODIUM CHLORIDE 0.9% 250ML 250 ML IVPB SCH (01:40)
[2020-07-03] MEDS: SUCRALFATE 1 GM TAB PO SCH (06:01)
[2020-07-03] MEDS: LEVOTHYROXINE SODIUM 0.025 MG TAB PO SCH (06:01)
[2020-07-03] MEDS: PANTOPRAZOLE SODIUM TAB 40 MG PO SCH (06:01)
[2020-07-03] MEDS: INSULIN LISPRO 100 UNITS/ML PEN SUBCU SCH ×2 (07:30→11:30)
[2020-07-03] MEDS: REMDESIVIR 100 MG in SODIUM CHLORIDE 0.9% 250ML 250 ML IVPB SCH (08:11)
[2020-07-03] MEDS: FERROUS SULFATE 325 MG TAB PO SCH (08:12)
[2020-07-03] MEDS: DEXAMETHASONE INJ 10 MG/ML VIAL IV SCH (08:12)
[2020-07-03] MEDS: METOPROLOL TARTRATE 25 MG TAB PO SCH (08:12)
[2020-07-03] MEDS: LORazepam 1 MG TAB PO SCH (08:12)
[2020-07-03] MEDS: ALLOPURINOL 300 MG TAB PO SCH (08:12)
[2020-07-03] MEDS: guaiFENesin ER TAB 600 MG TAB PO SCH (08:12)
[2020-07-03] MEDS: CITALOPRAM HBR 20 MG TAB PO SCH (08:13)
[2020-07-03] MEDS: MULTIPLE VITAMIN 1 EA TAB PO SCH (08:13)
[2020-07-03] MEDS: FUROSEMIDE 40 MG TAB PO SCH (08:13)
[2020-07-03] MEDS: DIGOXIN 0.125 MG TAB PO SCH (08:13)
[2020-07-03] MEDS: ALBUTEROL INHALER 64 PUFF/8GM INH SCH ×2 (09:30→12:00)
[2020-07-03] MEDS: RIVAROXABAN 15 MG TAB PO SCH (11:45)
[2020-07-03 12:43] VITALS: BP 112/71; TEMP 97.9; O2SAT 97
--- NOTE | 2020-07-03 14:23 | DS ---
SUPERVISING PHYSICIAN: eZb Maria MD DISCHARGE DIAGNOSIS: 1. COVID-19 pneumonitis. 2. Atrial fibrillation. 3. Diabetes mellitus, type 2. 4. Hypothyroidism. 5. Hypertension. HISTORY OF PRESENT ILLNESS: This is a 75-year-old female patient who came to the Emergency Room with cough and shortness of breath. She had been sent by her primary care physician for evaluation. Her symptoms started on 06/17/20 and she tested positive for COVID on 06/20/20. She had fever at that time, but has not had any since. However, she has progressively gotten more short of breath. In the ER, she was noted to have O2 saturations from 94 to 96% on room air, but with minimal exertion, she became very short of breath. She does have a previous history of smoking, but denies any chronic obstructive pulmonary disease. Her lab work in the Emergency Room was unremarkable except for D-dimer was elevated at 675 and CRP was 3.7. Chest x-ray showed bilateral patchy infiltrates consistent with viral pneumonia. She was placed in observation in the hospital. HOSPITAL COURSE: The patient was started on the COVID guidelines and medications including remdesivir, dexamethasone, azithromycin and doxycycline as well as bronchodilators and aggressive pulmonary hygiene. She had Mucinex and she is on Xarelto that will be sufficient for DVT prophylaxis. Her labs were monitored closely. Over the next day, her clinical status improved and she became less short of breath. She did not require any oxygen and her ambulation study revealed that she did not need home oxygen although physical therapy said she would need some home physical therapy due to her weakness. The patient has agreed to have [facility] with physical therapy. Her labs have stabilized. Her vital signs have stabilized. She will be discharged home today in stable condition. LABORATORY: WBC stable at 6.7 with hemoglobin 12.1, hematocrit 37.9. She did have a left shift on her differential. D-dimer was 675 on admission and is now 131. Blood sugars have run between 124 and 346. Electrolytes are within normal limits although her magnesium was slightly low yesterday at 1.6 and she received supplementation. It is up to 1.8. C-reactive protein was 3.7 on admission and is now 1.3. Liver enzymes were within normal limits. Urinalysis shows moderate amount of urine leukocyte esterase with 3 to 5 urine WBCs and 2+ urine bacteria. Digoxin level was 0.9. MICROBIOLOGY: Preliminary blood cultures showed no growth after 48 hours. Urine culture shows insignificant colony count of mixed eneida. RADIOLOGY: Chest x-ray showed minimal patchy airspace opacities that are present in both lungs. DISCHARGE PLAN: The patient will be discharged home in stable condition. She will have [facility] and physical therapy. She is to resume her previous diet and increase her activity as tolerated. She is to followup with her primary care physician, Dr. Joseph Cordon, within the next 1 to 2 weeks. In addition to her home medications, she is to continue with Align, dexamethasone, doxycycline, guaifenesin, albuterol and azithromycin. She is to return to the hospital or followup with Dr. Cordon for any problems or complications. DISCHARGE MEDICATIONS: 1. Citalopram. 2. Sucralfate. 3. Metoprolol. 4. Trazodone. 5. Levothyroxine. 6. Allopurinol. 7. Metformin. 8. Xarelto. 9. Atorvastatin. 10. Acetaminophen. 11. Pantoprazole. 12. Multivitamins. 13. Lorazepam. 14. Furosemide. 15. Ferrous sulfate. 16. Digoxin. 17. Diclofenac topical. 18. Align. 19. Dexamethasone. 20. Doxycycline. 21. Guaifenesin. 22. Albuterol. 23. Azithromycin. #[id number] [facility]
== END 2020-07-03 12:50 | disposition home health service (06) ==
LOC: ER 09:24 → MS 12:11
PROVIDERS: ADMIT Nurse Practitioner; ATTEND Nurse Practitioner Acute Care
DX: U07.1 COVID-19 (principal); J12.82 Pneumonia due to coronavirus disease 2019; I48.91 Unspecified atrial fibrillation; E11.9 Type 2 diabetes mellitus without complications; E03.9 Hypothyroidism, unspecified; I10 Essential (primary) hypertension; E83.42 Hypomagnesemia; Z79.01 Long term (current) use of anticoagulants; Z79.84 Long term (current) use of oral hypoglycemic drugs; Z79.890 Hormone replacement therapy; Z79.899 Other long term (current) drug therapy; Z87.891 Personal history of nicotine dependence; Z85.3 Personal history of malignant neoplasm of breast; Z90.13 Acquired absence of bilateral breasts and nipples; Z88.0 Allergy status to penicillin; Z88.1 Allergy status to other antibiotic agents; Z85.42 Personal history of malignant neoplasm of other parts of uterus; Z90.710 Acquired absence of both cervix and uterus
CPT/HCPCS: 96366 ×2; 96367 ×2; 96365; 96375; 96376 ×2; 96372 ×2; J7030; J7050 ×7; J1100 ×3; J3475; J1815; 85379 ×3; 80048; 82553; 80053 ×2; 87086; 82948 ×8; 36415 ×5; 81001; 86140 ×3; 85025 ×3; 82550; 87040 ×2; 80162; 82728; 84439; 83735 ×2; 85730; 85610; 84443; 84484; 36416 ×4; 83605 ×2; 71045 ×2; 94760 ×3; 94664; 94640 ×7; 94762 ×2; 97116 ×2; 97162; 99285